=== PATIENT | male | born 1960 | race Caucasian/White ===

== ENCOUNTER → 2022-03-06 | Outpatient (CLI) | payer SELFPAY ==
--- NOTE | 2022-03-06 22:20 | CT ---
EXAMINATION TYPE: CT shoulder RT wo con DATE OF EXAM: 03/06/2022 COMPARISON: None available HISTORY: Anterior subluxation of Rt sternoclavicular joint CT DLP: 508.10 mGycm Automated exposure control for dose reduction was used. TECHNIQUE: Multiple contiguous axial CT images of the right shoulder were obtained without the admini stration of intravenous contrast. 2-D sagittal and coronal reformats were obtained. 3-D post processing reconstructed images were performed on an independent workstation under concurren t supervision for better evaluation of the osseous structures. FINDINGS: Mild subcutaneous soft tissue swelling overlying the right sternoclavicular joint. Moderate degenerat agnes changes of the sternoclavicular joints. No acute fracture or dislocation. Moderate degenerative changes of the right acromioclavicular joint. Mild degenerative changes of the right glenohumeral joint. No joint effusion. Partially visualized right lung appears clear. IMPRESSION: 1. No acute fracture or dislocation. 2. Mild soft tissue inflammation overlying the right sternoclavicular joint. Correlate with point ten derness.
== END | disposition home or self-care (01) ==
LOC: RADCTMAIN 06:38
PROVIDERS: ATTEND Orthopaedic Surgery Sports Medicine
DX: M79.89 Other specified soft tissue disorders (principal)